=== PATIENT | male | born 1950 | race Caucasian/White ===

== ENCOUNTER 2024-11-20 08:15 | Emergency (ER) | payer OTHER ==
[~2024-11-20] VITALS: Ht 185.4 cm; Wt 104.3 kg
[2024-11-20 09:12] LABS: CORONAVIRUS COVID-19 AG Negative (NEGATIVE); INFLUENZA A AG Negative (NEGATIVE); INFLUENZA B AG Negative (NEGATIVE)
== END 2024-11-20 09:40 | disposition home or self-care (01) ==
LOC: ER 08:15
PROVIDERS: Physician Assistant
DX: J06.9 Acute upper respiratory infection, unspecified (principal)
CPT/HCPCS: 71046; 87081; 87428-QW; 87430; 99283-25